=== PATIENT | female | born 1995 | race Caucasian/White ===

== ENCOUNTER 2017-05-07 20:52 | Emergency (ER) | payer BC ==
[2017-05-07 21:06] VITALS: BP 123/66
[2017-05-07] MEDS ORDERED: Azithromycin TAB* 250 MG PO ONE (21:31)
--- NOTE | 2017-05-07 21:31 | UC ---
Throat Pain/Nasal Tony HPI - HPI Summary HPI Summary: patient has severe sinus pressure around the left eye, and some under the right eye, nasal congestion and sore throat, gets SOb easily with activity, has had some sweats and chills - History of Current Complaint Chief Complaint: UCRespiratory Stated Complaint: COLD SYMPTOMS Time Seen by Provider: 05/07/17 20:57 Hx Obtained From: Patient Hx Last Menstrual Period: 04/15/17 Onset/Duration: Gradual Onset, Lasting Days Severity: Moderate Associated Signs & Symptoms: Positive: Dysphagia, Wheezing, Sinus Discomfort, Nasal Discharge - Allergies/Home Medications Allergies/Adverse Reactions: Allergies Allergy/AdvReac Type Severity Reaction Status Date / Time No Known Allergies Allergy Verified 05/07/17 20:58 Home Medications: Home Medications Dextromethorphan-Phenylephrine [Day Time Multi-Symptom Co 10-5-325 mg/15Ml] 1 liq PO Q4H PRN 05/07/17 [History Confirmed 05/07/17] Norethin Acet & Estrad-Fe [09/07 1-20 mg-Mcg] 1 tab PO DAILY 05/07/17 [ History Confirmed 05/07/17] PMH/Surg Hx/FS Hx/Imm Hx Previously Healthy: Yes - Surgical History Surgical History: None - Family History Known Family History: Positive: Hypertension - Social History Alcohol Use: None Substance Use Type: None Smoking Status (MU): Never Smoked Tobacco - Immunization History Most Recent Influenza Vaccination: NOT IN 2016 Review of Systems Constitutional: Negative, Chills, Fatigue Skin: Negative Eyes: Negative ENT: Sore Throat, Nasal Discharge, Sinus Congestion, Sinus Pain/Tenderness Respiratory: Cough Cardiovascular: Negative Gastrointestinal: Negative Genitourinary: Negative Motor: Negative Neurovascular: Negative Musculoskeletal: Negative Neurological: Headache Psychological: Negative Is Patient Immunocompromised?: No All Other Systems Reviewed And Are Negative: Yes Physical Exam Triage Information Reviewed: Yes Appearance: Well-Appearing, Well-Nourished, Pain Distress Vital Signs: Initial Vital Signs Temp 98.7 F 05/07/17 21:00 Pulse 73 05/07/17 21:00 Resp 18 05/07/17 21:00 BP 123/66 05/07/17 21:00 Pulse Ox 99 05/07/17 21:00 Vital Signs Reviewed: Yes Eye Exam: Normal Eyes: Positive: Conjunctiva Inflamed ENT: Positive: Pharyngeal erythema, Nasal congestion, Nasal drainage, TM bulging Dental Exam: Normal Neck exam: Normal Respiratory Exam: Normal Respiratory: Positive: Chest non-tender, Lungs clear, Normal breath sounds Cardiovascular Exam: Normal Cardiovascular: Positive: RRR, No Murmur, Pulses Normal Abdominal Exam: Normal Abdomen Description: Positive: Nontender, No Organomegaly, Soft Bowel Sounds: Positive: Present Musculoskeletal Exam: Normal Musculoskeletal: Positive: Strength Intact, ROM Intact, No Edema Neurological Exam: Normal Neurological: Positive: Alert, Muscle Tone Normal Psychological Exam: Normal Skin Exam: Normal Throat Pain/Nasal Course/Dx - Course Course Of Treatment: hx obtained, exam performed ,meds reviewed, treated for sinus infection and geiven albuterol for wheezing - Differential Dx/Diagnosis Differential Diagnosis/HQI/PQRI: Otitis Media, Pharyngitis, Sinusitis, URI Provider Diagnoses: wheezing. sinusitis Discharge - Discharge Plan Condition: Stable Disposition: HOME Patient Education Materials: Nasal Rinse (ED), Sinusitis (ED) Additional Instructions: 1. increase your fluid intake and get plenty of rest. 2. take the medication as prescribed. 3. Follow up as needed for worsening symptoms.
== END 2017-05-07 21:39 | disposition home or self-care (01) ==
LOC: UCCORT 20:52
DX: J32.9 Chronic sinusitis, unspecified (principal); R06.2 Wheezing
CPT/HCPCS: 99202; A9270-GY; G0463

== ENCOUNTER 2017-05-19 14:35 | Emergency (ER) | payer BC ==
[2017-05-19 14:53] VITALS: BP 122/73
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
== END 2017-05-19 15:33 | disposition home or self-care (01) ==
LOC: UCCORT 14:35
DX: Z04.8 Encounter for examination and observation for other specified reasons (principal)
CPT/HCPCS: 99211; G0463